=== PATIENT | female | born 1970 | race Caucasian/White ===

== ENCOUNTER 2022-06-10 01:01 | Day surgery (SDC) | payer BC, OTHER, SELFPAY ==
[2022-05-28 13:24] VITALS: BMI 39.4
[2022-06-10 08:14] VITALS: BP 144/86; PULSE 99; RESP 16; TEMP 36.2; O2SAT 100; BMI 38.7
[2022-06-10] MEDS: LACTATED RINGERS 1,000 ML 150 ML IV CONT (08:31)
--- NOTE | 2022-06-10 09:10 | WPDANESEPPF ---
Anes - Initial Pre Proc Eval Procedure: Operation Date: 06/10/22 09:45 Proposed Procedures p Screening Colonoscopy - Fei Bowles MD Date/Time: 06/10/22 09:10 Surgeon: Fei Bowles MD Pre Op Diagnosis: neoplasm screening Patient Data Age: 51 Gender: F Height: 1.57 m Weight: 95.9 kg Last Vital Signs Temp 97.1 F L 06/10/22 08:14 Pulse 99 06/10/22 08:14 Resp 16 06/10/22 08:14 BP 144/86 H 06/10/22 08:14 Pulse Ox 100 06/10/22 08:14 O2 Del Method Room Air 06/10/22 08:14 Allergies Allergy/AdvReac Type Severity Reaction Status Date / Time No Known Allergies Allergy Verified 06/10/22 08:13 Home Medications Medication Instructions Recorded Confirmed Type cyanocobalamin (vitamin B-12) 1,000 mcg PO DAILY 10/09/19 06/10/22 History 1,000 mcg tablet metoprolol succinate 50 mg 50 mg PO DAILY #90 tabs 12/30/21 06/10/22 Rx tablet,extended release 24 hr valacyclovir 1 gram tablet 1,000 mg PO DAILY #90 tabs 01/01/22 06/10/22 Rx (Valtrex) irbesartan 300 mg tablet (Avapro) 300 mg PO DAILY #90 tabs 05/18/22 06/10/22 Rx lansoprazole 30 mg capsule,delayed 30 mg PO DAILY #90 caps 05/18/22 06/10/22 Rx release (Prevacid) norgestimate-ethinyl estradiol 1 tablet PO DAILY #84 tabs 05/18/22 06/10/22 Rx 0.18 mg/0.215mg/0.25mg-35 mcg(28)tablet (Tri-Sprintec (28)) semaglutide 0.25 mg or 0.5 mg (2 0.25 mg (0.2 mL) subcut WEEKLY 05/25/22 06/10/22 Rx mg/1.5 mL) subcutaneous pen #1.5 mL injector (Ozempic) Patient hx anesthesia problems: none Family hx anesthesia problems: none Results Review: All pre-operative results and documents have been reviewed as part of the pre-operative evaluation. [facility] Past Medical History Medical History (Updated 05/25/22 @ 07:41 by Dwight Rao MD) Abdominal obesity and metabolic syndrome Adult BMI 35.0-35.9 kg/sq m Blood typing encounter 01/12/2022 with blood type O positive Chronic neck pain Contraception management Encounter for wellness examination in adult Essential (primary) hypertension Family history of colon cancer in father Fever blister GERD (gastroesophageal reflux disease) Hypersomnia Iron deficiency (10/05/19) iron low at 36 with 80% saturation and hemoglobin 13.2 on 10/05/2019. iron normal at 54 with% saturation low at 14% with ferritin low at 13 and hemoglobin 12.9 on 01/12/2022. Mixed hyperlipidemia (10/05/19) Total cholesterol 264, HDL 56, triglycerides 222, LDL 170 on 10/05/2019. Total cholesterol 236 with triglycerides elevated at 437 with HDL 45 and LDL not calculated on 01/12/2022. Obesity (BMI 30-39.9) Vitamin B12 deficiency anemia (10/05/19) Vitamin B12 low at 268 with goal greater than 400 on 10/05/2019 with .2 . Level normal at 1617 on 01/12/2022. Weight gain Family History Family History (Updated 12/30/21 @ 15:55 by Geni Salvador MA) Father Carcinoma of colon Hypertension Mother Hypertension Other Diabetes mellitus Family history of heart disease in male family member before age 55 Social History Social History Smoking status: Never smoker Alcohol intake: never Substance use: never Substance use type: does not use Living arrangements: with family Spiritual care concerns: No Anes - Eval Final PreProcedure Day of Procedure 06/10/22 09:10 Patient weight: obese Heart: regular rate and rhythm Lungs: clear to auscultation Airway: Mallampati scale class II Neurological: alert and oriented Last oral intake: >/= 8 hours ASA classification: III Emergent: no Anesthetic plan: proceed Anesthesia type and monitoring: general GIVS and standard monitoring Results Review: All pre-operative results and documents have been reviewed as part of the pre-operative evaluation. Informed Consent: The patient's anesthetic plan and its attendant risks and benefits were discussed
--- NOTE | 2022-06-10 09:17 | PM.HPGS ---
History of Present Illness History of Present Illness Consent: Risks, benefits, and alternatives have been discussed and questions answered. Patient agrees to proceed with procedure. Chief complaint: neoplasm screening Narrative: Kayla De Anda is a 51 year old female here for first colonoscopy, father had colon cancer Review of Systems Constitutional: Constitutional: Denies headache(s) and Denies weakness Eyes: Eyes: Denies blurry vision ENT: Reports Normal hearing present, Denies headache(s) and Denies neck pain Cardiovascular: Cardiovascular: Denies chest pain and Denies dyspnea Respiratory: Respiratory: Denies dyspnea Gastrointestinal: Gastrointestinal: Reports no additional gastrointestinal complaints Genitourinary: Genitourinary: Denies dysuria Musculoskeletal: Musculoskeletal: Denies neck pain Integumentary/Breasts: Skin/Breast: Denies dry skin Neurologic: Reports Normal hearing present, Denies headache(s) and Denies weakness Psychiatric: Psychiatric: Denies anxiety Endocrine: Endocrine: Denies change in body appearance Hematologic/Lymphatic: Hematologic/Lymphatic: Denies easy bleeding Allergic/Immunologic: Allergic/Immunologic: Denies urticaria PMFSH Past Medical History Medical History (Updated 05/25/22 @ 07:41 by Dwight Rao MD) Abdominal obesity and metabolic syndrome Adult BMI 35.0-35.9 kg/sq m Blood typing encounter 01/12/2022 with blood type O positive Chronic neck pain Contraception management Encounter for wellness examination in adult Essential (primary) hypertension Family history of colon cancer in father Fever blister GERD (gastroesophageal reflux disease) Hypersomnia Iron deficiency (10/05/19) iron low at 36 with 80% saturation and hemoglobin 13.2 on 10/05/2019. iron normal at 54 with% saturation low at 14% with ferritin low at 13 and hemoglobin 12.9 on 01/12/2022. Mixed hyperlipidemia (10/05/19) Total cholesterol 264, HDL 56, triglycerides 222, LDL 170 on 10/05/2019. Total cholesterol 236 with triglycerides elevated at 437 with HDL 45 and LDL not calculated on 01/12/2022. Obesity (BMI 30-39.9) Vitamin B12 deficiency anemia (10/05/19) Vitamin B12 low at 268 with goal greater than 400 on 10/05/2019 with [id number] . Level normal at 1617 on 01/12/2022. Weight gain Family History Family History (Updated 12/30/21 @ 15:55 by Geni Salvador MA) Father Carcinoma of colon Hypertension Mother Hypertension Other Diabetes mellitus Family history of heart disease in male family member before age 55 Social History Social History Smoking status: Never smoker Alcohol intake: never Substance use: never Substance use type: does not use Living arrangements: with family Spiritual care concerns: No Meds Home Medications and Allergies Home Medications Medication Instructions Recorded Confirmed Type cyanocobalamin (vitamin B-12) 1,000 mcg PO DAILY 10/09/19 06/10/22 History 1,000 mcg tablet metoprolol succinate 50 mg 50 mg PO DAILY #90 tabs 12/30/21 06/10/22 Rx tablet,extended release 24 hr valacyclovir 1 gram tablet 1,000 mg PO DAILY #90 tabs 01/01/22 06/10/22 Rx (Valtrex) irbesartan 300 mg tablet (Avapro) 300 mg PO DAILY #90 tabs 05/18/22 06/10/22 Rx lansoprazole 30 mg capsule,delayed 30 mg PO DAILY #90 caps 05/18/22 06/10/22 Rx release (Prevacid) norgestimate-ethinyl estradiol 1 tablet PO DAILY #84 tabs 05/18/22 06/10/22 Rx 0.18 mg/0.215mg/0.25mg-35 mcg(28)tablet (Tri-Sprintec (28)) semaglutide 0.25 mg or 0.5 mg (2 0.25 mg (0.2 mL) subcut WEEKLY 05/25/22 06/10/22 Rx mg/1.5 mL) subcutaneous pen #1.5 mL injector (Ozempic) Allergies Allergy/AdvReac Type Severity Reaction Status Date / Time No Known Allergies Allergy Verified 06/10/22 08:13 Vital Signs Vital Signs - 24 hr 06/10/22 08:14 Temperature 97.1 F L Pulse Rate 99 Respirat
[2022-06-10 09:42] VITALS: BP 121/70; PULSE 82; RESP 19; O2SAT 100
[2022-06-10 09:52] VITALS: BP 124/74; PULSE 76; RESP 20; O2SAT 100
[2022-06-10 10:02] VITALS: BP 129/81; PULSE 71; RESP 17; O2SAT 100
== END 2022-06-10 10:11 | disposition home or self-care (01) ==
PROVIDERS: PCP Family Medicine; Visit Provider Internal Medicine Gastroenterology
PROC: 0DJD8ZZ Inspection of Lower Intestinal Tract, Via Natural or Artificial Opening Endoscopic (ICD-10-PCS; CPT 45378; principal; 2022-06-10 09:45)
DX: Z12.11 Encounter for screening for malignant neoplasm of colon (principal); K64.8 Other hemorrhoids; Z80.0 Family history of malignant neoplasm of digestive organs; I10 Essential (primary) hypertension; K21.9 Gastro-esophageal reflux disease without esophagitis; D51.3 Other dietary vitamin B12 deficiency anemia; E66.9 Obesity, unspecified; Z68.38 Body mass index [BMI] 38.0-38.9, adult
CPT/HCPCS: 45378; J2704; J7120

== ENCOUNTER 2025-02-11 12:53 | Observation (INO) | payer BC, OTHER, SELFPAY ==
--- OUTSIDE RECORDS SUMMARY | 2010-03-18 19:00 | XMS_ITS | Continuity of Care Document ---
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 [address] [facility], [facility] [address], [place], [place], [id number] , [place]. tel:[phone] Referring Provider: Ryland Trejo, [address], [place], [address]. tel:[phone] g Provider: Florencia Harvey, [address] [facility], [place], [address]. tel:[phone] Family History Family Member Type Diagnosis Age At Onset No Information Payers Payer name Insurance type Covered constitution party ID Authoriza tion(s) No Information Social History Type Description Quantity Date Captured Comments Sex Female Smoking Status No Information Chief Complaint And Reason For Visit No Information Reason For Referral Reason For Referral No Information History Of Present Illness Encounter Date Complaint History Of Prese nt Illness No Information Functional Status Date Functional Assessmen t No Information Instructions Date Instruction Additional Infor mation No Information Assessments Type Assessment Date No Information Patient Care Teams Name Effective Dates (start - stop) Status Members No Information
[2025-02-11] VITALS (12 sets, daily range): BP systolic 104–124; BP diastolic 62–75; PULSE 74–88; RESP 12–26; TEMP 36.4–37; O2SAT 98–100; BMI 33.7
--- NOTE | ~2025-02-11 | XR_ITS ---
EXAMINATION: XR chest 1V portable DATE: 02/11/2025 13:53 INDICATION: Stroke TECHNIQUE: frontal view of the chest was obtained. COMPARISON: None FINDINGS: Mild linear discoid atelectasis at the left costophrenic angle. No other airspace opacities, pulmonary edema, pleural effusion or pneumothorax. The cardiomediastinal silhouette is normal. Interval plate-screw fixation for lower cervical anterior spinal fusion. Mild thoracic dextrocurvature. IMPRESSION: 1. Mild discoid atelectasis/scarring at the left costophrenic angle. No other acute cardiopulmonary disease. Reviewed, dictated and finalized at location A. IMPRESSION: 1. Mild discoid atelectasis/scarring at the left costophrenic angle. No other a cute cardiopulmonary disease.
--- NOTE | ~2025-02-11 | CT_ITS ---
EXAMINATION: CTA BRAIN/CAROTID DATE: 02/11/2025 13:30 INDICATION: Stroke with facial numbness and right arm weakness TECHNIQUE: Computed tomographic angiography (CTA) of the head and neck was performed with 100 mL Omnipaque-350 intravenous contrast. Multiplanar reconstructions and maximum intensity projection 3D-reconstructions of the carotid arteries and of the intracranial arteries were created by the technologist on a separate workstation. Precontrast CT of the head was also obtained. Automated exposure control and iterative reconstruction technique were employed.The dose-length product was 1669.34 mGy-cm. COMPARISON: None. FINDINGS: Head: No acute intracranial hemorrhage, acute infarction or abnormal extra axial fluid collection. Ventricles are normal and symmetric. No mass/mass effect. No abnormally enhancing lesions on the post contrast imaging. The orbits, paranasal sinuses and mastoid air cells are normal. Intracranial arteries Left vertebral artery is dominant. There is no hemodynamically significant stenosis in the vertebral, basilar and internal carotid arteries. Both A1 and P1 segments are patent. There are no aneurysms identified. Cerebral arterial arborization appears symmetric. Carotid arteries: The aortic arch and the great vessels arising from the arch are normal in caliber with no dissection or hemodynamically significant stenosis. There is no evident atherosclerotic plaque with 0% stenosis of the right and left carotid bulbs relative to normal distal artery lumen diameter (NASCET criteria). Left vertebral artery is mildly dominant. Cervical soft tissues are unremarkable. Visualized upper lungs are clear. Instrumented C5-C7 anterior spinal fusion with anterior plate and screw fixation. IMPRESSION: 1. No evident atherosclerotic plaque with 0% stenosis of the right and left carotid bulbs relative to normal distal artery lumen diameter (NASCET criteria). 2. Normal brain. No acute intracranial process or abnormally enhancing brain lesions. 3. Unremarkable cerebral CT angiogram with no hematoma significant stenosis, thrombosis or aneurysm. Reviewed, dictated and finalized at location A. IMPRESSION: 1. No evident atherosclerotic plaque with 0% stenosis of the right and left car otid bulbs relative to normal distal artery lumen diameter (NASCET criteria). 2. Normal brain. No acute intracranial process or abnormally enhancing brain le sions. 3. Unremarkable cerebral CT angiogram with no hematoma significant stenosis, th rombosis or aneurysm.
--- NOTE | 2025-02-11 13:04 | ECG_ITS ---
Test Date: 2025-02-11 13:52:22 Measurements Intervals [place] Rate: 76 P: 24 WV: 139 QRS: -4 QRSD: 81 T: 18 QT: 389 QTc: 439 Interpretive Statements SINUS RHYTHM MINIMAL Q WAVES- HIGH LATERAL LEADS POSSIBLE ANTERIOR MYOCARDIAL INFARCTION , PROBABLY OLD BORDERLINE T WAVE ABNORMALITY- ANT/INF LEADS BASELINE ARTIFACT- I, III, AVR, AVL, AVF, V2, V5-V6 ABNORMAL ECG No previous ECG available for comparison Electronically Signed On 02-11-2025 16:06:53 CDT by Aiden Malcolm D.O.
--- NOTE | 2025-02-11 13:16 | ED.NEUROSD ---
HPI - Neuro Symptoms/Deficit General Chief Complaint: Suspected CVA Stated Complaint: stroke symptoms, facial numbness, right arm weak Time Seen by Provider: 02/11/25 13:05 History of Present Illness HPI Narrative: [age] female presents to the emergency department for evaluation for neurologic symptoms. Patient began having a ?strange sensation ?in her right arm at approximately 9:00 a.m.. Patient states she was able to text without arm. Patient denies any flaccid paralysis. Patient denies the arm being completely numb. Patient states she also did develop some right-sided facial numbness. Denies seeing any facial droop. Patient denies any changes in speech. Once the symptoms started patient did actually go to grab some food. Upon arrival emergency department patient does complain of some decreased sensation of the right side of the face but denies any current symptoms with the right hand. Related Data Home Medications ?Medication ?Instructions ?Recorded ?Confirmed ?Last Taken ?Type ferrous sulfate 137 mg (45 mg 137 mg PO . q.a.m. 07/26/23 02/11/25 02/11/25 History iron) tablet,extended release semaglutide 0.25 mg or 0.5 mg (2 0.25 mg subcut WEEKLY 01/02/25 02/11/25 02/11/25 History mg/3 mL) subcutaneous pen injector (Ozempic) amoxicillin 250 mg capsule 750 mg PO Q12H 02/08/25 02/11/25 02/11/25 History Allergies Allergy/AdvReac Type Severity Reaction Status Date / Time No Known Allergies Allergy Verified 02/11/25 13:04 Review of Systems Review of Systems: All systems reviewed & are unremarkable except as noted in HPI and below [facility] Past Medical History Medical History Pharyngitis Sebaceous cyst of breast Cellulitis BMI 34.0-34.9,adult Eosinophilia (12/26/24) new onset elevated eosinophils With count elevated at 1428 on 12/26/2024.IgE normal at 6. repeat CBC on 01/29/2025 with WBC 9.1, hemoglobin 13.4, eosinophil count slightly elevated at 537. Coronary artery calcification seen on CAT scan (09/21/24) coronary artery calcium CT scan 09/21/2024 with total score of 457 with 68.1 of the LAD, 7.6 circumflex, 381 RCA. High probability significant coronary artery disease. BMI 37.0-37.9, adult Acute thoracic back pain (~08/2024) Vitamin D deficiency, unspecified (05/04/24) level low at 26.2 with goal greater than 30 on 05/04/2024. BMI 38.0-38.9,adult Elevated liver enzymes (03/25/24) AST 38, ALT elevated at 53 with alkaline phosphatase elevated at 131 on 03/25/2024.AST 34, ALT 48 on 05/04/2024. AST 32, ALT 38 on 08/28/2024. AST 23, ALT 25 on 12/26/2024. Elevated hemoglobin A1c (03/25/24) fasting glucose 99 with hemoglobin A1c 6.0 on 03/25/2024. Fasting glucose 97 with hemoglobin A1c 5.8 on 05/04/2024. Fasting glucose 86 with hemoglobin A1c 5.9 on 08/28/2024. Fasting glucose 86 with hemoglobin A1c 5.7 and GFR 101 on 12/26/2024. Renal stones (~08/04/23) nonobstructing renal stones noted on CT of the abdomen and pelvis on 08/04/2023 Uterine fibroid (~08/04/23) uterine fibroids noted on CT of the abdomen and pelvis on 08/04/2023. Cholelithiasis (~08/04/23) gallstones noted on CT of the abdomen 08/04/2023. Lumbar spondylosis (~08/04/23) CT of the abdomen and pelvis on 08/04/2023 reveals diffuse degenerative disc disease of the lumbar spine with facet arthropathy severe at L3-L4 through L5-S1 with moderate osteoarthritis of the hips. Perimenopausal Early satiety Abdominal bloating Abdominal pain in female amylase 30, lipase 19, CA 125 normal at 17, AST 20, ALT 16 on 07/16/2023. Morbid obesity with BMI of 40.0-44.9, adult Breast cancer screening by mammogram Normal mammogram 08/04/2023. normal mammogram 01/31/2025. Lightheadedness (~11/2022) Low iron on 12/03/2022. Abdominal obesity and metabolic syndrome Chronic neck pain Hypersomnia Obesity (BMI 30-39.9) Normal glucose at 81 with hemoglobin A1c 5.4 with normal TSH at 1.28 on 07/16/2023. Blood typing encounter 01/12/2022 with blood type O positive Adult BMI 35.0-35.9 kg/sq m Weight gain Contraception management GERD (gastroesophageal reflux disease) Vitamin B12 deficiency anemia (10/05/19) Vitamin B12 low at 268 with goal greater than 400 on 10/05/2019 with [id number] . Level normal at 1617 on 01/12/2022. Level greater than 2000 with hemoglobin 12.6 on 12/03/2022. level normal at 782 with hemoglobin 13.4 on 07/16/2023. Level normal at 584 on 08/28/2024. Normal at 412 with hemoglobin 13.3 on 12/26/2024. Iron deficiency (10/05/19) iron low at 36 with 80% saturation and hemoglobin 13.2 on 10/05/2019. iron normal at 54 with% saturation low at 14% with ferritin low at 13 and hemoglobin 12.9 on 01/12/2022. Iron low at 34 with 9% saturation and ferritin 8 with hemoglobin 12.6 on 12/03/2022. Iron low at 43 with 11% saturation and ferritin low at 11 with hemoglobin 13.4 on 07/16/2023. Iron 42 with 11% saturation and ferritin 17 on 10/07/2023. Iron 54 with 15% saturation and ferritin 61 with hemoglobin 15.5 on 08/28/2024. Iron 57 with 19% saturation and ferritin 86 with hemoglobin 13.3 on 12/26/2024. Family history of colon cancer in father (06/10/22) For screening colonoscopy was normal on 06/10/2022 with recheck in 5 years. Encounter for wellness examination in adult Mixed hyperlipidemia (10/05/19) Total cholesterol 264, HDL 56, triglycerides 222, LDL 170 on 10/05/2019. Total cholesterol 236 with triglycerides elevated at 437 with HDL 45 and LDL not calculated on 01/12/2022. Total cholesterol 215 with triglycerides 477, HDL 38 and LDL not calculated with ratio of 5.8 on 12/03/2022. Cholesterol 227, triglycerides 469, HDL 36, LDL not calculated, ratio 6.3 on 10/07/2023. cholesterol 279, triglycerides 411, HDL 33, LDL 155 with ratio 8.5 on 03/25/2024. Total cholesterol 174, triglycerides 322, HDL 39, LDL 82 with ratio of 4.5 on 05/04/2024. cholesterol 216, triglycerides 332, HDL 43, LDL 126 with ratio of 5.0 on 08/28/2024. Cholesterol 153, triglycerides 278, HDL 38, LDL 78 with ratio 4.0 on 12/26/2024. cholesterol 317, triglycerides 458, HDL 37, LDL not calculated, ratio of 8.6 without medication on 01/29/2025. Fever blister Essential (primary) hypertension BUN 15, creatinine 0.84 with GFR 84 on 12/03/2022. Family History Family History Father Carcinoma of colon Hypertension Mother Hypertension Other Diabetes mellitus Family history of heart disease in male family member before age 55 Social History Social History Smoking status: Never smoker Alcohol intake: never Substance use: never Substance use type: does not use Lack of Transportation: No Lack of Food: Never True Current Housing: Decline to Answer Concerned About Future Housing: Decline to Answer Difficulty Paying Gas/Electric Bills: Decline to Answer Difficulty Paying for Meds: Decline to Answer Currently Unemployed: Decline to Answer Education: Decline to Answer Difficulty w/ Childcare or Family Care: Decline to Answer Living arrangements: with family Spiritual care concerns: No Exam Narrative: APPEARANCE: Well appearing, no pain, no distress, well-nourished. HEAD: normocephalic, atraumatic. EYES: PERRLA/EOMI, conjunctivae clear. NOSE: Normal no drainage EARS:TMS clear with good light reflex. THROAT: Pharynx clear, no exudate. NECK: Supple. No adenopathy, no masses. RESPIRATORY: Airway patent, respirations nonlabored. Clear to auscultation bilaterally, no rales, rhonchi, wheezing. CARDIOVASCULAR: Regular rate and rhythm without murmurs rubs or gallops. ABDOMINAL: Soft, nontender, nondistended, normal bowel sounds MUSCULOSKELETAL: Moves all extremities. Strength/ROM intact, No edema, No calf tenderness. NEURO: Alert. Cranial nerves II through XII intact. Grossly intact. Mild decreased sensation over the right face SKIN: Warm, dry. Normal Color Course Vital Signs Vital signs: Vital Signs Pulse Rate 87 02/11/25 12:54 Respiratory Rate 16 02/11/25 12:54 Blood Pressure 124/75 02/11/25 12:54 Pulse Oximetry 100 02/11/25 12:54 Temperature 97.7 F 02/11/25 16:40 Pulse Rate 87 02/11/25 17:00 Respiratory Rate 18 02/11/25 16:40 Blood Pressure 109/66 02/11/25 16:40 Pulse Oximetry 99 02/11/25 16:40 Oxygen Delivery Room Air 02/11/25 16:57 MDM - Neuro Symptoms/Deficit MDM Narrative Medical decision making narrative: 54-year-old female presents emergency department for evaluation for paresthesias to right arm and right face. Patient is afebrile with no leukocytosis hemoglobin was 13.3. INR is 0.9. Patient has no acute abnormalities on her CMP and troponin was negative. Chest x-ray shows no acute cardiopulmonary abnormality. Head CTA was negative for acute findings. Patient was treated with aspirin and Plavix. We do not have Neurology on-call today but neurology does return tomorrow. Case was discussed with the hospitalist patient was accepted for admission. MRI was ordered for tomorrow. Patient was updated the results of the workup and recommended plan for admission. Patient was willing to stay. All questions concerns were addressed patient was well-appearing at time of admission. Differential Diagnosis Differential diagnosis: Likely subarachnoid hemorrhage, cerebrovascular accident, transient cerebral ischemia and other Lab Data Attestation: I reviewed the patient's lab results. 02/11/25 13:12 02/11/25 13:23 Labs: Lab Results 02/11/25 02/11/25 02/11/25 Range/Units 13:09 13:12 13:23 WBC 9.0 (4.5-10.0) K/mm3 RBC 4.28 (4.2-5.4) M/mm3 Hgb 13.3 (12.0-15.0) g/dL Hct 40.3 (37.0-47.0) % MCV 94.2 (80-100) fl MCH 31.1 (26-34) pg MCHC 33.0 (32-36) g/dl RDW 12.9 (11.5-14.5) % Plt Count 323 (150-375) k/mm3 MPV 9.5 (7.4-10.4) fl Immature Gran % (Auto) 0.2 (0-0.5) % Neut % (Auto) 44.4 L (45.5-73.1) % Lymph % (Auto) 43.3 (18.3-44.2) % [place] % (Auto) 5.9 (2.6-8.5) % Eos % (Auto) 5.2 H (0-4.4) % Baso % (Auto) 1.0 (0.2-1.2) % Lymph # (Auto) 3.89 H (0.9-3.2) K/mm3 [place] # (Auto) 0.5 (0.1-0.6) K/mm3 Eos # (Auto) 0.5 H (0-0.3) K/mm3 Baso # (Auto) 0.1 (0.0-0.1) K/mm3 Abs Immat Gran (auto) 0.02 (0.00-0.031) K/mm3 Absolute Neuts (auto) 4.0 (1.3-6.7) K/mm3 Absolute Nucleated RBC 0.000 (0.0-0.012) K/mm3 Nucleated RBC % 0.0 (0.0-0.2) % PT 12.4 (11.1-14.7) Seconds INR 0.9 APTT 26.4 (22.3-36.8) Seconds Sodium 139 (137-145) mmol/L Potassium 3.3 L (3.4-5.0) mmol/L Chloride 100 (98-107) mmol/L Carbon Dioxide 28 (22-30) mmol/L Anion Gap 11 (4-12) mmol/L BUN 15 (7-17) mg/dL Creatinine 0.76 1.00 (0.7-1.0) mg/dL Estim Creat Clear Calc 74 57 ml/min Estimated GFR > 60 58 L (59 - ) Glucose 104 (65-110) mg/dL POC Capillary Glucose 96 (65-105) mg/dl Calcium 9.5 (8.4-10.2) mg/dL Total Bilirubin 0.6 (0.2-1.3) mg/dL AST 35 (14-36) U/L ALT 33 (6-35) U/L Alkaline Phosphatase 96 (38-126) U/L Troponin I < 0.012 (0.000-0.034) ng/mL Total Protein 6.9 (6.3-8.2) g/dL Albumin 4.0 (3.5-5.1) g/dL Imaging Data Radiologist's impression: Impressions Head/Neck CTA 02/11/25 13:56 IMPRESSION: 1. No evident atherosclerotic plaque with 0% stenosis of the right and left carotid bulbs relative to normal distal artery lumen diameter (NASCET criteria). 2. Normal brain. No acute intracranial process or abnormally enhancing brain lesions. 3. Unremarkable cerebral CT angiogram with no hematoma significant stenosis, thrombosis or aneurysm. Chest X-Ray 02/11/25 14:05 IMPRESSION: 1. Mild discoid atelectasis/scarring at the left costophrenic angle. No other acute cardiopulmonary disease. Discharge Plan Discharge Clinical Impression: Brain TIA, Paresthesia of right arm, Facial paresthesia Patient Disposition: Still a Patient Condition: Serious Quality Stroke Scale Stroke Scale 1: Stroke scale date:: 02/11/25 Stroke scale time:: 13:10 1a Level of consciousness: alert-0 1b Level of consciousness questions: answers both correctly-0 1c Level of consciousness commands: obeys both correctly-0 2 Best gaze: normal-0 3 Visual: no visual loss-0 4 Facial palsy: normal-0 5a Motor: left arm: no drift-0 5b Motor: right arm: no drift-0 6a Motor: left leg: no drift-0 6b Motor: right leg: no drift-0 7 Limb ataxia: absent-0 8 Sensory: pinprick less sharp-1 9 Best language: no aphasia-0 10 Dysarthria: normal-0 11 Extinction and inattention: no abnormality-0 Level:: 1
[2025-02-11 13:21] LABS: Hematocrit 40.3 % (37.0-47.0); Hemoglobin 13.3 g/dL (12.0-15.0); Immature Granulocyte Percent A 0.2 % (0-0.5); Lymphocytes Absolute Auto 3.89 K/mm3 (0.9-3.2); Mean Corpuscular HGB Conc 33.0 g/dl (32-36); Mean Corpuscular Hemoglobin 31.1 pg (26-34); Mean Corpuscular Volume 94.2 fl (80-100); Nucleated Red Blood Cells Absolute Auto 0.000 K/mm3 (0.0-0.012); Nucleated Red Blood Cells Perc 0.0 % (0.0-0.2); Platelet Count Result 323 k/mm3 (150-375); Red Blood Count 4.28 M/mm3 (4.2-5.4); White Blood Count 9.0 K/mm3 (4.5-10.0)
[2025-02-11 13:27] LABS: Estimated CRCL calculation 57 ml/min; Estimated Glomerular Filt Rate 58
[2025-02-11 13:31] LABS: INR 0.9; Prothrombin Time 12.4 Seconds (11.1-14.7)
[2025-02-11 13:36] LABS: Alanine Aminotransferase 33 U/L (6-35); Albumin Level 4.0 g/dL (3.5-5.1); Alkaline Phosphatase 96 U/L (38-126); Anion Gap 11 mmol/L (4-12); Aspartate Amino Transferase 35 U/L (14-36); Bilirubin,Total 0.6 mg/dL (0.2-1.3); Blood Urea Nitrogen 15 mg/dL (7-17); Calcium 9.5 mg/dL (8.4-10.2); Carbon Dioxide 28 mmol/L (22-30); Chloride 100 mmol/L (98-107); Estimated CRCL calculation 74 ml/min; Estimated Glomerular Filt Rate > 60; Glucose 104 mg/dL (65-110); Potassium 3.3 mmol/L (3.4-5.0); Sodium 139 mmol/L (137-145); Total Protein 6.9 g/dL (6.3-8.2)
[2025-02-11 13:40] LABS: Partial Thromboplastin Time 26.4 Seconds (22.3-36.8)
[2025-02-11 13:44] LABS: Troponin I < 0.012 ng/mL (0.000-0.034)
--- OUTSIDE RECORDS SUMMARY | 2025-02-11 13:44 | XMS_ITS | Clinical Summary ---
Author Organization [facility] Address [address] [place] [address] Care Team Providers Care Auto Service Writer Name Role Phone Unavailable Primary Care Provider Unavailabl e Encounters Date Type Department Care Team Description 01/31/2025 7:22 AM CDT - 01/31/2025 11:59 PM CDT Hospital Encounter [facility] [address] [facility] [place] [address] Self Referral Provider, Marii, Dwight Quintana MD Discharge Disposition: Home or Self Care from Last 3 Months Social History Tobacco Use Types Packs/Day Years Used Date Smoking Tobacco: Never Assessed Comments Unknown Sex and Gender Information Value Date Recorded Sex Assigned at Not on file 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 Gender Identity Not on file Sexual Orientation Not on file Plan of Treatment Health Maintenance Due Date Last Done Comments Pre-Diabetes and Diabetes Screening 1970 DTAP/TDAP/TD VACCINES (1 - Tdap) 1989 HEPATITIS B VACCINES (1 of 3 - 19+ 3-dose series) 1989 HPV/Cotest (21-29) 1991 CERVICAL CANCER SCREENING 2000 HPV/Cotest (30-65) 2000 PAP SMEAR 2000 COLORECTAL SCREENING 2015 Colorectal Cancer Screening 2015 FIT-DNA Q 3 years 2015 FIT/FOBT Q 1 year 2015 Flex Sig/CT Colonography Q 5 years 2015 ZOSTER VACCINE (2 of 3) 04/27/2021 03/02/2021 COVID-19 Vaccine (2 - season) 2024 INFLUENZA VACCINE (#1) 2025 03/02/2021, 2018 BREAST CANCER SCREENING 01/31/2026 01/31/2025, 08/04 Procedures Procedure Name Priority Date/Time Associated Diagnosis Comments MAMMO 3D SLOAN SCREEN BILAT W OR WO CAD Routine 01/31/2025 7:49 AM CDT Visit for screening mammogram from Last 3 Months Results * MAMMO 3D SLOAN SCREEN BILAT W OR WO CAD (01/31/2025 7:49 AM CDT) Anatomical Region Laterality Modality Breast Bilateral Mammography 01/31/2025 7:50 AM CDT Impressions 01/31/2025 4:44 PM CDT IMPRESSION: NO RADIOGRAPHIC EVIDENCE OF MALIGNANCY. BI-RADS CATEGORY 1-Negative. DICTATION LOCATION: Location 4 Narrative 01/31/2025 4:44 PM CDT MAMMOGRAM: Computer Assisted Detection (CAD) used during interpretation. INDICATION: Screening. Standard views of both breasts are obtained. 3D tomosynthesis was also utilized. Compared to 08/04/23. There has been no change. There is no abnormal mass or grouped microcalcifications present to suggest malignant disease. Breast Density: Scattered areas of fibroglandular density. Jos Molina MD MAMMO ORDERABLES Ana Cristina garcia Result from Last 3 Months Insurance BCBS BLUE ACCESS/TRUE BLUE PPO [facility] [address] BLUE ACCESS/TRUE BLUE PPO
--- OUTSIDE RECORDS SUMMARY | 2025-02-11 13:44 | XMS_ITS | Clinical Summary ---
Author Organization [facility] Address [address] [place] [id number] Care Team Providers Care Field Examiner Name Role Phone Dwight Rao MD Primary Care Provider [phone] Social History Tobacco Use Types Packs/Day Years Used Date Smoking Tobacco: Never Assessed Comments Unknown Sex and Gender Information Value Date Recorded Sex Assigned at Female 09/21/2024 6:39 AM CDT Legal Sex Female 8:25 AM CDT Gender Identity Not on file Sexual Orientation Not on file Plan of Treatment Health Maintenance Due Date Last Done Comments Cervical Cancer Screening Pa p Smear (Age 30 to 64) Every 3 Years 1970 Colorectal Cancer Screening Colonoscopy (10 Years) 1970 Annual Physical 1973 Hepatitis C 1988 DTaP, Tdap and Td Vaccines ( 1 - Tdap) 1989 Hepatitis B Vaccines (1 of 3 - 19+ 3-dose series) 1989 Cervical Cancer Screening Pa p with HPV Testing (Age 30 to 64) Every 5 Years 2000 Cervical Cancer Screening with HPV 2000 Pneumococcal Vaccine: 50+ Ye ars (1 of 1 - PCV) 2020 Zoster Vaccines (1 of 2) 2020 COVID-19 Vaccine ( - 2023-2 5 season) 2024 Mammogram Screening 08/04/2025 08/04/2023 Meningococcal B Vaccine Aged Out No l onger eligible based on patient's age to complete this topic Meningococcal Vaccine Aged Out No alfonso inderjit eligible based on patient's age to complete this topic RSV Immunizations Under 20 Months Aged Out No longer eligible based on patient's age to complete this topic Insurance [facility] Care Teams Field Examiner Relationship Specialty Start Date End Date Dwight aRo MD [address] [place] [address] [address] [place] [address] PCP - General FAMILY PRACTICE 08/31/24
[2025-02-11] MEDS: ASPIRIN 81 MG CHEWABLE TABLET 324 MG PO (15:34)
[2025-02-11] MEDS: CLOPIDOGREL BISULFATE 300 MG TABLET PO (15:34)
--- NOTE | 2025-02-11 16:06 | ADMGEN ---
This patient, Kayla De Anda, was admitted to 2 Medical Room 242-01. Patient/family oriented to hospital policies and general routines including ID bracelet, bed and alarms, visiting hours, pain management, procedures, bathroom and other care routines, personal items, smoking policy, room service/diet, and visiting hours. Information on how to activate the Rapid Response Team has been discussed. Patient/Family are encouraged to report perceived risks to care and to ask questions if they do not understand what they are told or what they should do.
--- NOTE | 2025-02-11 16:09 | PM.IMHP ---
H&P: HPI History of Present Illness Date/Time: 02/11/25 16:09 Chief Complaint: Facial numbness, right arm weakness Narrative: 54-year-old female with PMHx: HTN, GERD, iron deficiency, presented to the emergency room with complaints of numbness and tingling in the right side of her face and wrist that began earlier this morning while looking at her phone. The patient described a sensation that was similar to the numbness experience after a dental procedure. The symptoms did continue throughout the day even after eating in a restaurant and grocery shopping. The patient was concerned about the possibility of a stroke. The patient has a high history of high cholesterol, citing she was recently switched to a different cholesterol medication due to the elevated white blood cell counts. The patient experienced several acid reflux symptoms with the previous cholesterol medications which resolved after discontinuation of medication. The patient mention she takes Valtrex daily for cold sores which has been effective in preventing outbreaks. The patient did not report any chest pain shortness a breath nausea or vision changes at this time. ED workup revealed: NIH Scale level 1, K+ 3.3, GFR 58, creatinine 1.0, CTA normal brain, chest x-ray mild discoid atelectasis/scarring at the left costophrenic angle. No other acute cardiopulmonary disease, EKG sinus rhythm Review of Systems Review of Systems: All systems reviewed & are unremarkable except as noted in HPI and below PMFSH Past Medical History Medical History Pharyngitis Sebaceous cyst of breast Cellulitis BMI 34.0-34.9,adult Eosinophilia (12/26/24) new onset elevated eosinophils With count elevated at 1428 on 12/26/2024.IgE normal at 6. repeat CBC on 01/29/2025 with WBC 9.1, hemoglobin 13.4, eosinophil count slightly elevated at 537. Coronary artery calcification seen on CAT scan (09/21/24) coronary artery calcium CT scan 09/21/2024 with total score of 457 with 68.1 of the LAD, 7.6 circumflex, 381 RCA. High probability significant coronary artery disease. BMI 37.0-37.9, adult Acute thoracic back pain (~08/2024) Vitamin D deficiency, unspecified (05/04/24) level low at 26.2 with goal greater than 30 on 05/04/2024. BMI 38.0-38.9,adult Elevated liver enzymes (03/25/24) AST 38, ALT elevated at 53 with alkaline phosphatase elevated at 131 on 03/25/2024.AST 34, ALT 48 on 05/04/2024. AST 32, ALT 38 on 08/28/2024. AST 23, ALT 25 on 12/26/2024. Elevated hemoglobin A1c (03/25/24) fasting glucose 99 with hemoglobin A1c 6.0 on 03/25/2024. Fasting glucose 97 with hemoglobin A1c 5.8 on 05/04/2024. Fasting glucose 86 with hemoglobin A1c 5.9 on 08/28/2024. Fasting glucose 86 with hemoglobin A1c 5.7 and GFR 101 on 12/26/2024. Renal stones (~08/04/23) nonobstructing renal stones noted on CT of the abdomen and pelvis on 08/04/2023 Uterine fibroid (~08/04/23) uterine fibroids noted on CT of the abdomen and pelvis on 08/04/2023. Cholelithiasis (~08/04/23) gallstones noted on CT of the abdomen 08/04/2023. Lumbar spondylosis (~08/04/23) CT of the abdomen and pelvis on 08/04/2023 reveals diffuse degenerative disc disease of the lumbar spine with facet arthropathy severe at L3-L4 through L5-S1 with moderate osteoarthritis of the hips. Perimenopausal Early satiety Abdominal bloating Abdominal pain in female amylase 30, lipase 19, CA 125 normal at 17, AST 20, ALT 16 on 07/16/2023. Morbid obesity with BMI of 40.0-44.9, adult Breast cancer screening by mammogram Normal mammogram 08/04/2023. normal mammogram 01/31/2025. Lightheadedness (~11/2022) Low iron on 12/03/2022. Abdominal obesity and metabolic syndrome Chronic neck pain Hypersomnia Obesity (BMI 30-39.9) Normal glucose at 81 with hemoglobin A1c 5.4 with normal TSH at 1.28 on 07/16/2023. Blood typing encounter 01/12/2022 with blood type O positive Adult BMI 35.0-35.9 kg/sq m Weight gain Contraception management GERD (gastroesophageal reflux disease) Vitamin B12 deficiency anemia (10/05/19) Vitamin B12 low at 268 with goal greater than 400 on 10/05/2019 with [id number] . Level normal at 1617 on 01/12/2022. Level greater than 2000 with hemoglobin 12.6 on 12/03/2022. level normal at 782 with hemoglobin 13.4 on 07/16/2023. Level normal at 584 on 08/28/2024. Normal at 412 with hemoglobin 13.3 on 12/26/2024. Iron deficiency (10/05/19) iron low at 36 with 80% saturation and hemoglobin 13.2 on 10/05/2019. iron normal at 54 with% saturation low at 14% with ferritin low at 13 and hemoglobin 12.9 on 01/12/2022. Iron low at 34 with 9% saturation and ferritin 8 with hemoglobin 12.6 on 12/03/2022. Iron low at 43 with 11% saturation and ferritin low at 11 with hemoglobin 13.4 on 07/16/2023. Iron 42 with 11% saturation and ferritin 17 on 10/07/2023. Iron 54 with 15% saturation and ferritin 61 with hemoglobin 15.5 on 08/28/2024. Iron 57 with 19% saturation and ferritin 86 with hemoglobin 13.3 on 12/26/2024. Family history of colon cancer in father (06/10/22) For screening colonoscopy was normal on 06/10/2022 with recheck in 5 years. Encounter for wellness examination in adult Mixed hyperlipidemia (10/05/19) Total cholesterol 264, HDL 56, triglycerides 222, LDL 170 on 10/05/2019. Total cholesterol 236 with triglycerides elevated at 437 with HDL 45 and LDL not calculated on 01/12/2022. Total cholesterol 215 with triglycerides 477, HDL 38 and LDL not calculated with ratio of 5.8 on 12/03/2022. Cholesterol 227, triglycerides 469, HDL 36, LDL not calculated, ratio 6.3 on 10/07/2023. cholesterol 279, triglycerides 411, HDL 33, LDL 155 with ratio 8.5 on 03/25/2024. Total cholesterol 174, triglycerides 322, HDL 39, LDL 82 with ratio of 4.5 on 05/04/2024. cholesterol 216, triglycerides 332, HDL 43, LDL 126 with ratio of 5.0 on 08/28/2024. Cholesterol 153, triglycerides 278, HDL 38, LDL 78 with ratio 4.0 on 12/26/2024. cholesterol 317, triglycerides 458, HDL 37, LDL not calculated, ratio of 8.6 without medication on 01/29/2025. Fever blister Essential (primary) hypertension BUN 15, creatinine 0.84 with GFR 84 on 12/03/2022. Family History Family History Father Carcinoma of colon Hypertension Mother Hypertension Other Diabetes mellitus Family history of heart disease in male family member before age 55 Social History Social History Smoking status: Never smoker Alcohol intake: never Substance use: never Substance use type: does not use Lack of Transportation: No Lack of Food: Never True Current Housing: Decline to Answer Concerned About Future Housing: Decline to Answer Difficulty Paying Gas/Electric Bills: Decline to Answer Difficulty Paying for Meds: Decline to Answer Currently Unemployed: Decline to Answer Education: Decline to Answer Difficulty w/ Childcare or Family Care: Decline to Answer Living arrangements: with family Spiritual care concerns: No Meds Home Medications and Allergies Home Medications ?Medication ?Instructions ?Recorded ?Confirmed ?Type ferrous sulfate 137 mg (45 mg 137 mg PO . q.a.m. 07/26/23 02/11/25 History iron) tablet,extended release metformin 500 mg tablet,extended 500 mg PO BID #60 tabs 04/07/24 02/11/25 Rx release 24 hr hydrochlorothiazide 12.5 mg tablet 12.5 mg PO . q.a.m. #30 tabs 05/08/24 02/11/25 Rx lansoprazole 30 mg capsule,delayed 30 mg PO DAILY #90 caps 05/08/24 02/11/25 Rx release (Prevacid) metoprolol succinate 100 mg 100 mg PO DAILY #90 tabs 05/08/24 02/11/25 Rx tablet,extended release 24 hr irbesartan 300 mg tablet (Avapro) 300 mg PO DAILY #90 tabs 05/23/24 02/11/25 Rx valacyclovir 1 gram tablet 1,000 mg PO DAILY #90 tabs 11/27/24 02/11/25 Rx (Valtrex) semaglutide 0.25 mg or 0.5 mg (2 0.25 mg subcut WEEKLY 01/02/25 02/11/25 History mg/3 mL) subcutaneous pen injector (Ozempic) amoxicillin 250 mg capsule 750 mg PO Q12H 02/08/25 02/11/25 History Allergies Allergy/AdvReac Type Severity Reaction Status Date / Time No Known Allergies Allergy Verified 02/11/25 13:04 Vital Signs Vital Signs - 24 hr 02/11/25 12:54 02/11/25 12:56 02/11/25 13:00 Temperature 97.9 F Pulse Rate 87 88 85 Respiratory Rate 16 17 26 H Blood Pressure 124/75 124/75 124/75 Pulse Oximetry 100 100 100 Oxygen Delivery Room Air 02/11/25 13:05 02/11/25 13:31 02/11/25 14:15 Temperature Pulse Rate 88 79 81 Respiratory Rate 12 17 Blood Pressure 118/62 105/67 Pulse Oximetry 100 99 Oxygen Delivery 02/11/25 15:40 Temperature Pulse Rate 85 Respiratory Rate 12 Blood Pressure 104/72 Pulse Oximetry 99 Oxygen Delivery Exam Narrative: APPEARANCE: Well appearing, no pain, no distress, well-nourished. HEAD: normocephalic, atraumatic. EYES: PERRLA/EOMI, conjunctivae clear. NOSE: Normal no drainage EARS:TMS clear with good light reflex. THROAT: Pharynx clear, no exudate. NECK: Supple. No adenopathy, no masses. RESPIRATORY: Airway patent, respirations nonlabored. Clear to auscultation bilaterally, no rales, rhonchi, wheezing. CARDIOVASCULAR: Regular rate and rhythm without murmurs rubs or gallops. ABDOMINAL: Soft, nontender, nondistended, normal bowel sounds MUSCULOSKELETAL: Moves all extremities. Strength/ROM intact, No edema, No calf tenderness. NEURO: Alert. Cranial nerves II through XII intact. Grossly intact SKIN: Warm, dry. Normal Color H&P: Results Labs Labs: Short CBC 02/11/25 Range/Units 13:12 WBC 9.0 (4.5-10.0) K/mm3 Hgb 13.3 (12.0-15.0) g/dL Hct 40.3 (37.0-47.0) % Plt Count 323 (150-375) k/mm3 BMP 02/11/25 02/11/25 13:12 13:23 Sodium 139 Potassium 3.3 L Chloride 100 Carbon Dioxide 28 BUN 15 Creatinine 0.76 1.00 Glucose 104 Calcium 9.5 Cardiac Enzymes 02/11/25 Range/Units 13:12 Troponin I < 0.012 (0.000-0.034) ng/mL Liver Function 02/11/25 Range/Units 13:12 Total Bilirubin 0.6 (0.2-1.3) mg/dL AST 35 (14-36) U/L ALT 33 (6-35) U/L Alkaline Phosphatase 96 (38-126) U/L Albumin 4.0 (3.5-5.1) g/dL ECG ECG completion date: 02/11/25 ECG completion time: 13:52 Interpretation: Ordering Physician: Sridhar Sanchez MD Date of Service: 02/11/25 Procedure(s): CA 12 lead EKG Accession Number(s): [id number] cc: ~ Test Date: 2025-02-11 13:52:22 Measurements Intervals [place] Rate: 76 P: 24 GA: 139 QRS: -4 QRSD: 81 T: 18 QT: 389 QTc: 439 Interpretive Statements SINUS RHYTHM MINIMAL Q WAVES- HIGH LATERAL LEADS POSSIBLE ANTERIOR MYOCARDIAL INFARCTION , PROBABLY OLD BORDERLINE T WAVE ABNORMALITY- ANT/INF LEADS BASELINE ARTIFACT- I, III, AVR, AVL, AVF, V2, V5-V6 ABNORMAL ECG No previous ECG available for comparison Electronically Signed On 02-11-2025 16:06:53 CDT by Aiden [facility] CTA Brain : Radiologist's impression: FINDINGS: Head: No acute intracranial hemorrhage, acute infarction or abnormal extra axial fluid collection. Ventricles are normal and symmetric. No mass/mass effect. No abnormally enhancing lesions on the post contrast imaging. The orbits, paranasal sinuses and mastoid air cells are normal. Intracranial arteries Left vertebral artery is dominant. There is no hemodynamically significant stenosis in the vertebral, basilar and internal carotid arteries. Both A1 and P1 segments are patent. There are no aneurysms identified. Cerebral arterial arborization appears symmetric. Carotid arteries: The aortic arch and the great vessels arising from the arch are normal in caliber with no dissection or hemodynamically significant stenosis. There is no evident atherosclerotic plaque with 0% stenosis of the right and left carotid bulbs relative to normal distal artery lumen diameter (NASCET criteria). Left vertebral artery is mildly dominant. Cervical soft tissues are unremarkable. Visualized upper lungs are clear. Instrumented C5-C7 anterior spinal fusion with anterior plate and screw fixation. IMPRESSION: 1. No evident atherosclerotic plaque with 0% stenosis of the right and left carotid bulbs relative to normal distal artery lumen diameter (NASCET criteria). 2. Normal brain. No acute intracranial process or abnormally enhancing brain lesions. 3. Unremarkable cerebral CT angiogram with no hematoma significant stenosis, thrombosis or aneurysm. Assessment and Plan Assessment and plan (1) Brain TIA: Code(s): G45.9 - Transient cerebral ischemic attack, unspecified Status: Acute Assessment and Plan: -continue telemetry -check bedside swallow screen eval and treat -consult Neurology -ASA given in the ED -loading dose Plavix 300 mg p.o. given in the ED -check echo with bubble study -check carotid duplex in the a.m. -last lipid panel on 01/29/2025, abnormal, patient reports she is unable to tolerate statins (2) Essential (primary) hypertension: Code(s): I10 - Essential (primary) hypertension Status: Acute Assessment and Plan: continue home medications Irbesartan 300mg p.o. daily (3) Mixed hyperlipidemia: Onset Date: 10/05/19 Code(s): E78.2 - Mixed hyperlipidemia Status: Acute Assessment and Plan: -triglycerides 458, cholesterol 317, non HDL 280, HDL direct 37, cholesterol ratio 8.6 -pt unable to tolerate statins due to GERD -discussed with patient to request Repatha for future management of her hyperlipidemia (4) GERD (gastroesophageal reflux disease): Qualifiers: Esophagitis presence: without esophagitis Qualified Code(s): K21.9 - Gastro-esophageal reflux disease without esophagitis Code(s): K21.9 - Gastro-esophageal reflux disease without esophagitis Status: Acute Assessment and Plan: chronic -pantoprazole 40 mg p.o. b.i.d. Plan Continue home medications: As reconciled-hold GLP 1, metformin, VTE Prophylaxis: SCDs DIET: Heart healthy Anticipated hospital stay: > 1 day Code Status: Full code Hospitalist MIPS Advance Care Plan I have confirmed that the patient's Advanced Care Plan is present, code status is documented, or surrogate decision maker is listed in patient medical record.: Yes Medication Reconciliation I have utilized all available resources to obtain, update and review the patients current medications (includes all prescriptions, OTC, herbals, cannabis, and nutritional supplements).: Yes
[2025-02-12] VITALS (7 sets, daily range): BP systolic 109–126; BP diastolic 59–73; PULSE 65–94; RESP 16; TEMP 36.5–36.6; O2SAT 97–98
--- NOTE | 2025-02-12 | ECHO_ITS ---
Patient Info Name: Kayla De Anda Age: 54 years : 1970 Gender: Female Ht: 62 in Wt: 184 lbs BSA: 1.95 m2 HR: 65 bpm BP: 109 / 59 mmHg Heart Rhythm: Sinus Rhythm Technical Quality: Fair Exam Date: 02/12/2025 12:39 PM Patient Status: I Admit Date: 02/11/2025 Exam Type: CA echo dop bubble study w con Complete two-dimentional, color flow and Doppler transthoracic echocardiogram is performed with agitated saline and with contrast to opacify the left ventricle and to improve the delineation of the left ventricle endocardial borders. Staff Referring Physician: Abby Herrera Warp Hauler: Kenia Rogers Attending Provider: Eliecer Monroy Contrast/Agitated Saline Contrast/Ag. Saline: Definity Amount: 2.00 ml Administered By: Kenia Rogers Existing IV Access: Yes IV Access Condition: patent with no signs of infiltration Contrast/Ag. Saline: Agitated Saline Amount: 20.00 ml Existing IV Access: Yes IV Access Condition: patent with no signs of infiltration Summary 1. Definity contrast administered improved wall motion interpretation. 2. Left ventricular chamber dimension is normal. 3. Left ventricular systolic function is normal, estimated at 60-65. 4. The left ventricular diastolic function is grade I diastolic dysfunction. 5. E/e' 6 is not elevated. 6. There is trace tricuspid valve regurgitation. 7. No pulmonary hypertension, estimated pulmonary arterial systolic pressure is 26 mmHg. Left Ventricle E/e' 6 is not elevated. Left ventricular chamber dimension is normal. Left ventricular systolic function is normal, estimated at 60-65. The left ventricular diastolic function is grade I diastolic dysfunction. Definity contrast administered improved wall motion interpretation. Right Ventricle Right ventricular chamber dimension is normal. Right ventricular systolic function is normal and with normal TAPSE 1.8 cm. Left Atria Left atrial chamber dimension is normal. Right Atria Right atrial chamber dimension is normal. Atrial Septum Intact interatrial septum visualized by 2D and agitated saline imaging. Agitated saline injection with and without valsalva maneuver opacified right side cardiac chambers without shunt to left side cardiac chambers. Aortic Valve The aortic valve is trileaflet. There is no aortic valve stenosis. There is no aortic valve regurgitation. Pulmonic Valve There is no pulmonic regurgitation. Mitral Valve There is no mitral valve stenosis. There is no mitral valve regurgitation. Tricuspid Valve There is trace tricuspid valve regurgitation. No pulmonary hypertension, estimated pulmonary arterial systolic pressure is 26 mmHg. Pericardium/Pleural There is no pericardial effusion. Inferior Vena Cava Normal inferior vena cava with >50% collapse upon inspiration consistent with normal right atrial pressure, 5 mmHg. Aorta The aortic root size at the sinus of Valsalva is normal. Left Ventricular Outflow Tract Name Value Normal LVOT 2D LVOT Diameter 2.0 cm LVOT Doppler LVOT Peak Velocity 141 cm/s LVOT Peak Gradient 8 mmHg LVOT Mean Gradient 4 mmHg LVOT VTI 26 cm LVOT VTI/AV VTI Ratio 1.0 LVOT Stroke Volume 78 ml LVOT CO 6.0 l/min LVOT CI 3.1 l/min/m2 Pulmonic Valve Name Value Normal RVOT Doppler RVOT Peak Velocity 83 cm/s RVOT Peak Gradient 3 mmHg PV Doppler PV Peak Velocity 99 cm/s PV Peak Gradient 4 mmHg Mitral Valve Name Value Normal MV Diastolic Function MV E Peak Velocity 61 cm/s MV A Peak Velocity 68 cm/s MV E/A 0.9 MV Decel Time (PW) 295 ms MV Annular TDI MV E/e' (Septal) 7.3 MV E/e' (Lateral) 6.6 MV E/e' (Average) 7.0 Tricuspid Valve Name Value Normal TV Regurgitation Doppler TR Peak Velocity 227 cm/s TR Peak Gradient 21 mmHg Estimated PAP/RSVP RA Pressure 5 mmHg <=5 PA Systolic Pressure 26 mmHg <36 RV Systolic Pressure 26 mmHg <36 TV Annular TDI TV Lateral Aure s' Velocity 12.6 cm/s >=9.5 Aorta Name Value Normal Ascending Aorta Ao Root Diameter (MM) 2.7 cm Ao Root Diam Index (MM) 1.4 cm/m2 Aortic Valve Name Value Normal AV Doppler AV Peak Velocity 164 cm/s AV Peak Gradient 11 mmHg AV Mean Gradient 4 mmHg AV VTI 27 cm AV Area (Cont Eq VTI) 2.9 cm2 >=3.0 AV Area (Cont Eq Henrry) 2.6 cm2 AV DI (Henrry) 0.86 AV Regurgitation 2D LVOT Area 3.1 cm2 Ventricles Name Value Normal LV Dimensions 2D/MM IVS Diastolic Thickness (2D) 0.6 cm 0.6-1.0 LVID Diastole (2D) 4.3 cm 3.8-5.2 LVIW Diastolic Thickness (2D) 0.6 cm 0.6-0.9 LVID Systole (2D) 2.6 cm 2.2-3.5 LVOT Diameter 2.0 cm LV Mass (2D Cubed) 80.03 g 67.00-162.00 LV Mass Index (2D Cubed) 41 g/m2 43-95 Relative Wall Thickness (2D) 0.30 <=0.42 LV Fractional Shortening/Ejection Fraction 2D/MM LV Fractional Shortening (2D) 40 % 27-45 LV EF (2D Teichholz) 70 % LV Diastolic Volume (4C MOD) 61 ml LV EF (4C MOD) 70 % LV Diastolic Volume (2C MOD) 30 ml LV EF (2C MOD) 69 % LV Diastolic Volume (BP MOD) 43 ml 46-106 LV Diastolic Volume Index (BP MOD) 22 ml/m2 29-61 LV Systolic Volume (BP MOD) 14 ml 14-42 LV Systolic Volume Index (BP MOD) 7 ml/m2 8-24 LV EF (BP MOD) 69 % 54-74 LV Diastolic Length (4C) 6.8 cm LV Systolic Length (4C) 5.9 cm LV Stroke Volume (4C MOD) 43 ml Atria Name Value Normal LA Dimensions LA Dimension (MM) 3.4 cm 2.7-3.8 LA Volume (4C A-L) 44 ml LA Volume (BP A-L) 42 ml RA Dimensions RA Area (4C) 10.6 cm2 <=18.0 Report Signatures
[2025-02-12 04:41] LABS: Hematocrit 37.0 % (37.0-47.0); Hemoglobin 11.9 g/dL (12.0-15.0); Immature Granulocyte Percent A 0.4 % (0-0.5); Lymphocytes Absolute Auto 4.14 K/mm3 (0.9-3.2); Mean Corpuscular HGB Conc 32.2 g/dl (32-36); Mean Corpuscular Hemoglobin 31.4 pg (26-34); Mean Corpuscular Volume 97.6 fl (80-100); Nucleated Red Blood Cells Absolute Auto 0.000 K/mm3 (0.0-0.012); Nucleated Red Blood Cells Perc 0.0 % (0.0-0.2); Platelet Count Result 288 k/mm3 (150-375); Red Blood Count 3.79 M/mm3 (4.2-5.4); White Blood Count 7.9 K/mm3 (4.5-10.0)
[2025-02-12 04:51] LABS: Hemoglobin A1C 5.3 % (<5.7)
[2025-02-12 04:58] LABS: Alanine Aminotransferase 26 U/L (6-35); Albumin Level 3.6 g/dL (3.5-5.1); Alkaline Phosphatase 81 U/L (38-126); Anion Gap 6 mmol/L (4-12); Aspartate Amino Transferase 32 U/L (14-36); Bilirubin,Total 0.5 mg/dL (0.2-1.3); Blood Urea Nitrogen 15 mg/dL (7-17); Calcium 9.1 mg/dL (8.4-10.2); Carbon Dioxide 32 mmol/L (22-30); Chloride 101 mmol/L (98-107); Estimated CRCL calculation 78 ml/min; Estimated Glomerular Filt Rate > 60; Glucose 94 mg/dL (65-110); Potassium 3.8 mmol/L (3.4-5.0); Sodium 139 mmol/L (137-145); Total Protein 6.6 g/dL (6.3-8.2)
[2025-02-12 05:05] LABS: Anisocytosis 1+; Hypochromasia 1+; Schistocytes None Seen
[2025-02-12 06:09] LABS: Vitamin B12 482.0 pg/mL (239-931)
[2025-02-12 07:29] LABS: Magnesium 1.8 mg/dL (1.6-2.3)
[2025-02-12] MEDS: PANTOPRAZOLE 40 MG TABLET PO (08:55)
[2025-02-12] MEDS: IRBESARTAN 150 MG TABLET 300 MG PO (08:55)
[2025-02-12] MEDS: ASPIRIN 81 MG CHEWABLE TABLET PO (08:55)
--- NOTE | 2025-02-12 09:27 | PCSTNOTE ---
Please refer to the Bedside Swallow Evaluation in the EMR. Please note, silent aspiration cannot be ruled out at bedside. The patient is a 54 year old female admitted for possible TIA with onset right facial numbness and right side weakness. Orders received from physician to complete a BSE and r/o aspiration risk. Oral Mechanism exam: The patient states the facial numbness appears to have resolved. Demonstrates good lingual and labial ROM. Speech is intelligible. The patient was positioned upright and assess with her morning meal to include the following consistencies: Thin liquid via straw, Puree/applesauce, cracker/solids. Oral Stage: timely oral preparation and transit all consistencies. Pharyngeal stage: Timely swallow all consistencies with good laryngeal elevation and no viewed CSA such as coughing, choking, or changes in vocal quality. Recommend 1. Regular Diet / Level 7 and 2. Thin liquid / Level 0
--- NOTE | 2025-02-12 10:07 | P.PNIM_ITS ---
Subjective Date/time seen: 02/12/25 10:07 Review of Systems Review of Systems: All systems reviewed & are unremarkable except as noted in HPI and below Objective Data Vital Signs Vital Signs: Vital Signs - 24 hr 02/11/25 12:54 02/11/25 12:56 02/11/25 13:00 Temperature 97.9 F Pulse Rate 87 88 85 Respiratory Rate 16 17 26 H Blood Pressure 124/75 124/75 124/75 Pulse Oximetry 100 100 100 Oxygen Delivery Room Air 02/11/25 13:05 02/11/25 13:31 02/11/25 14:15 Temperature Pulse Rate 88 79 81 Respiratory Rate 12 17 Blood Pressure 118/62 105/67 Pulse Oximetry 100 99 Oxygen Delivery 02/11/25 15:40 02/11/25 16:40 02/11/25 16:57 Temperature 97.7 F Pulse Rate 85 78 Respiratory Rate 12 18 Blood Pressure 104/72 109/66 Pulse Oximetry 99 99 Oxygen Delivery Room Air 02/11/25 17:00 02/11/25 19:41 02/11/25 20:00 Temperature 97.5 F L Pulse Rate 87 74 79 Respiratory Rate 18 17 Blood Pressure 117/71 Pulse Oximetry 99 98 Oxygen Delivery Room Air 02/11/25 20:00 02/11/25 23:37 02/12/25 00:00 Temperature 98.6 F Pulse Rate 74 79 70 Respiratory Rate 17 Blood Pressure 118/68 Pulse Oximetry 98 Oxygen Delivery 02/12/25 03:37 02/12/25 04:00 02/12/25 07:39 Temperature 97.8 F 97.7 F Pulse Rate 72 65 74 Respiratory Rate 16 16 Blood Pressure 109/59 L 122/67 Pulse Oximetry 97 98 Oxygen Delivery 02/12/25 09:00 Temperature Pulse Rate Respiratory Rate Blood Pressure 125/73 Pulse Oximetry Oxygen Delivery Intake/Output Intake/Output: Intake & Output 02/09/25 02/10/25 02/11/25 02/12/25 23:59 23:59 23:59 23:59 Intake Total 240 270 Balance 240 270 Meds/Results Medications: Active Medications Generic Name Dose Route Start Last Admin Trade Name Freq PRN Reason Stop Dose Admin Aspirin 81 mg 02/12/25 08:00 02/12/25 08:55 Aspirin 81 Mg Chewable Tablet PO 81 mg DAILY@0800 AAMIR Administration Irbesartan 300 mg 02/12/25 09:00 02/12/25 08:55 Irbesartan 150 Mg Tablet PO 300 mg DAILY AAMIR Administration Pantoprazole Sodium 40 mg 02/11/25 21:00 02/12/25 08:55 Pantoprazole 40 Mg Tablet PO 40 mg Q12HR AAMIR Administration Perflutren Lipid Microsphere 0 ml 02/11/25 17:26 Perflutren Lipid Microspheres 1.5 Ml Vial Diluted To 10 Ml Total Volume IV PUSH 02/14/25 17:26 ONCE PRN adequate visualization Protocol Valacyclovir HCl 1,000 mg 02/12/25 09:00 02/12/25 08:55 Valacyclovir Hcl 500 Mg Tablet PO 1,000 mg DAILY AAMIR Administration Radiology Results: ITS Impressions Head/Neck CTA 02/11/25 13:56 IMPRESSION: 1. No evident atherosclerotic plaque with 0% stenosis of the right and left carotid bulbs relative to normal distal artery lumen diameter (NASCET criteria). 2. Normal brain. No acute intracranial process or abnormally enhancing brain lesions. 3. Unremarkable cerebral CT angiogram with no hematoma significant stenosis, th rombosis or aneurysm. Chest X-Ray 02/11/25 14:05 IMPRESSION: 1. Mild discoid atelectasis/scarring at the left costophrenic angle. No other acute cardiopulmonary disease. Labs Labs: Laboratory Results - last 24 hr 02/11/25 02/11/25 02/11/25 13:09 13:12 13:23 WBC 9.0 RBC 4.28 Hgb 13.3 Hct 40.3 MCV 94.2 MCH 31.1 MCHC 33.0 RDW 12.9 Plt Count 323 MPV 9.5 Immature Gran % (Auto) 0.2 Neut % (Auto) 44.4 L Lymph % (Auto) 43.3 Sherman % (Auto) 5.9 Eos % (Auto) 5.2 H Baso % (Auto) 1.0 Lymph # (Auto) 3.89 H Sherman # (Auto) 0.5 Eos # (Auto) 0.5 H Baso # (Auto) 0.1 Abs Immat Gran (auto) 0.02 Absolute Neuts (auto) 4.0 Absolute Nucleated RBC 0.000 Band Neutrophils % Nucleated RBC % 0.0 Platelet Estimate Hypochromasia Anisocytosis Schistocytes PT 12.4 INR 0.9 APTT 26.4 Sodium 139 Potassium 3.3 L Chloride 100 Carbon Dioxide 28 Anion Gap 11 BUN 15 Creatinine 0.76 1.00 Estim Creat Clear Calc 74 57 Estimated GFR > 60 58 L Glucose 104 POC Capillary Glucose 96 Hemoglobin A1c Calcium 9.5 Magnesium Total Bilirubin 0.6 AST 35 ALT 33 Alkaline Phosphatase 96 Troponin I < 0.012 Total Protein 6.9 Albumin 4.0 Vitamin B12 Folate 02/11/25 02/12/25 19:37 03:46 WBC 7.9 RBC 3.79 L Hgb 11.9 L Hct 37.0 MCV 97.6 MCH 31.4 MCHC 32.2 RDW 12.9 Plt Count 288 MPV 9.9 Immature Gran % (Auto) 0.4 Neut % (Auto) 34.3 L Lymph % (Auto) 52.4 H Sherman % (Auto) 5.7 Eos % (Auto) 6.1 H Baso % (Auto) 1.1 Lymph # (Auto) 4.14 H Sherman # (Auto) 0.5 Eos # (Auto) 0.5 H Baso # (Auto) 0.1 Abs Immat Gran (auto) 0.03 Absolute Neuts (auto) 2.7 Absolute Nucleated RBC 0.000 Band Neutrophils % Not Reportable Nucleated RBC % 0.0 Platelet Estimate Adequate Hypochromasia 1+ Anisocytosis 1+ Schistocytes None seen PT INR APTT Sodium 139 Potassium 3.8 Chloride 101 Carbon Dioxide 32 H Anion Gap 6 BUN 15 Creatinine 0.71 Estim Creat Clear Calc 78 Estimated GFR > 60 Glucose 94 POC Capillary Glucose 102 Hemoglobin A1c 5.3 Calcium 9.1 Magnesium 1.8 Total Bilirubin 0.5 AST 32 ALT 26 Alkaline Phosphatase 81 Troponin I Total Protein 6.6 Albumin 3.6 Vitamin B12 482.0 Folate > 20.0 H
[2025-02-12] MEDS: PERFLUTREN LIPID MICROSPHERES 1.5 ML VIAL DILUTED TO 10 ML TOTAL VOLUME IV PUSH (12:50)
--- NOTE | 2025-02-12 14:55 | IVDEFINITY ---
Prior to administration of IV Definity the patient was educated on the risks and benefits of the imaging enhancing agent including potential adverse side effects. The patient verbalized understanding. Allergies were verified. No exclusion criteria were identified and at least one of the following inclusion criteria were met: 1) physician request, 2) patient technically difficult to image (per the [place] [employer] guidelines of two or more segments not discernable within the apical view), or 3) questionable left ventricular function. ?
--- NOTE | 2025-02-12 15:25 | P.DS_ITS ---
DS: Admitting Diagnosis Discharge Date 02/12/2025 Admitting Diagnosis Stroke symptoms DS: Discharge Diagnosis Discharge Diagnosis (1) Brain TIA: Code(s): G45.9 - Transient cerebral ischemic attack, unspecified Status: Acute (2) Essential (primary) hypertension: Code(s): I10 - Essential (primary) hypertension Status: Acute (3) Mixed hyperlipidemia: Onset Date: 10/05/19 Code(s): E78.2 - Mixed hyperlipidemia Status: Acute (4) GERD (gastroesophageal reflux disease): Qualifiers: Esophagitis presence: without esophagitis Qualified Code(s): K21.9 - Gastro-esophageal reflux disease without esophagitis Code(s): K21.9 - Gastro-esophageal reflux disease without esophagitis Status: Acute DS: Summary Hospital Course Hospital Course: Patient is a 54-year-old female with PMHx: HTN, GERD, iron deficiency, presented to the emergency room with complaints of numbness and tingling in the right side of her face and wrist that began earlier yesterday morning while looking at her phone. ED workup revealed: NIH Scale level 1, K+ 3.3, GFR 58, creatinine 1.0, CTA normal brain, chest x-ray mild discoid atelectasis/scarring at the left costophrenic angle. No other acute cardiopulmonary disease, EKG sinus rhythm. Echocardiogram showed: Summary 1. Definity contrast administered improved wall motion interpretation. 2. Left ventricular chamber dimension is normal. 3. Left ventricular systolic function is normal, estimated at 60-65. 4. The left ventricular diastolic function is grade I diastolic dysfunction. 5. E/e' 6 is not elevated. 6. There is trace tricuspid valve regurgitation. 7. No pulmonary hypertension, estimated pulmonary arterial systolic pressure is [address] Menezes saw patient. Patient to go home on Aspirin 81 mg PO daily, Plavix 75 mg PO daily, and something for her cholesterol. Discussed with patient she cannot take Statin, would like to try Fenofibrate and will discuss further with Dr. Jalen Chao or to continue the Fenofibrate. Follow up with Dr. Menezes in a couple of weeks. Patient to have MRI done as an outpatient. Status at Discharge Functional status at discharge: independent ambulation Overall status at discharge: patient is progressing back to baseline Time Spent with Patient Time attestation: Total time spent providing and/or coordinating discharge services: Time spent: Greater than 30 minutes Exam Const: General: comfortable and no acute distress Eyes: Sclera: sclerae normal Resp: Effort & Inspection: normal respiratory effort Auscultation: clear to auscultation bilaterally Cardio: Rate: regular rate Rhythm: regular rhythm Other: Telemetry- SR 82. GI: GI Palp: Yes Soft to palpation Auscultation: normal bowel sounds Skin: General skin exam: no rashes or lesions noted Neuro: Motor exam (neuro): 5/5 motor strength present throughout Extrem: General: pedal edema Psych: Mental Status: mental status grossly normal Affect: normal affect DS: Data Data Completed and Pending Labs on day of discharge: Labs from last 24 hours 02/12/25 02/11/25 03:46 19:37 WBC 7.9 RBC 3.79 L Hgb 11.9 L Hct 37.0 MCV 97.6 MCH 31.4 MCHC 32.2 RDW 12.9 Plt Count 288 MPV 9.9 Immature Gran % (Auto) 0.4 Neut % (Auto) 34.3 L Lymph % (Auto) 52.4 H Ocean % (Auto) 5.7 Eos % (Auto) 6.1 H Baso % (Auto) 1.1 Lymph # (Auto) 4.14 H [place] # (Auto) 0.5 Eos # (Auto) 0.5 H Baso # (Auto) 0.1 Abs Immat Gran (auto) 0.03 Absolute Neuts (auto) 2.7 Absolute Nucleated RBC 0.000 Band Neutrophils % Not Reportable Nucleated RBC % 0.0 Platelet Estimate Adequate Hypochromasia 1+ Anisocytosis 1+ Schistocytes None seen Sodium 139 Potassium 3.8 Chloride 101 Carbon Dioxide 32 H Anion Gap 6 BUN 15 Creatinine 0.71 Estim Creat Clear Calc 78 Estimated GFR > 60 Glucose 94 POC Capillary Glucose 102 Hemoglobin A1c 5.3 Calcium 9.1 Magnesium 1.8 Total Bilirubin 0.5 AST 32 ALT 26 Alkaline Phosphatase 81 Total Protein 6.6 Albumin 3.6 Vitamin B12 482.0 Folate > 20.0 H Discharge Plan Discharge Attending physician on discharge: Ruel Harding Consulting providers: Chano Menezes Discharging Clinician: Danisha Llanes Anticipated Discharge Date/Time: 02/12/25 16:04 Patient Disposition: Home Activity: may shower and as tolerated Diet: heart healthy Discharge Instructions: * Make sure you are drinking water if you are taking the Hydrochlorothiazide. * Discuss with primary restarting Metoprolol, hold until you discuss. * If you develop weakness, numbness, facial droop, or horrible headache call 911. * Follow up with Dr. Menezes outpatient in a couple of weeks. * Started Fenofibrate 160 mg PO daily. Discuss with Dr. Rao or if he would like you to start Repatha. * Schedule MRI brain outpatient. * Decrease fats and fried foods in your diet. Increase activity. Thank you for entrusting [facility] with your healthcare! Patient Instructions: Antibiotic Form, Fenofibrate (By mouth), Clopidogrel (By mouth), Transient Ischemic Attack (DC), Heart Healthy Diet (DC), GERD (Gastroesophageal Reflux Disease) (DC), Blood Thinners (GEN) Patient Language: Indonesian Stand Alone Forms: General Discharge Information Follow-up/Referrals: Dwight Rao MD [Primary Care Provider, Family Practice] - 1 Week Chano Menezes MD [Physician, Neurology] - 2 Weeks Discharge Medications: New aspirin [Children's Aspirin] 81 mg Tablet,Chewable 81 mg PO DAILY@0800 Qty: 90 0RF clopidogrel 75 mg tablet 75 mg PO DAILY Qty: 90 0RF fenofibrate 160 mg tablet 160 mg PO DAILY Qty: 90 0RF Continued hydrochlorothiazide 12.5 mg tablet 12.5 mg PO . q.a.m. Qty: 30 11RF lansoprazole [Prevacid] 30 mg capsule,delayed release(DR/EC) 30 mg PO DAILY Qty: 90 3RF Ozempic 0.25 mg or 0.5 mg (2 mg/3 mL) pen injector 0.25 mg subcut WEEKLY Patient Comments: sample started 0.25 mg weekly for weight loss, September, Rx Instructions: 0.25 mg weekly ferrous sulfate 137 mg (45 mg iron) tablet extended release 137 mg PO . q.a.m. metformin 500 mg tablet extended release 24 hr 500 mg PO BID Qty: 60 11RF irbesartan [Avapro] 300 mg tablet 300 mg PO DAILY Qty: 90 3RF valacyclovir [Valtrex] 1 gram tablet 1,000 mg PO DAILY Qty: 90 3RF amoxicillin 250 mg capsule 750 mg PO Q12H Rx Instructions: 3 capsules twice daily for 7 days for pharyngitis. Held metoprolol succinate 100 mg tablet extended release 24 hr 100 mg PO DAILY Qty: 90 3RF Hold Instructions: Resume on 02/21/25. Discuss with primary, before restarting. Blood pressure running 105/67-126/70, no history of arrhythmias. Date of admission: 02/11/25 15:07 Primary Care Provider: Dwight Rao Admitting Provider: Eliecer Monroy Attending physician on admission: Eliecer Monroy Condition: Improved Hospitalist MIPS Heart Failure (Exclusion) Patient has history of Heart Transplant or Left Ventricular Assistive Device?: No IF YES, STOP HERE Heart Failure (Qualifier) Patient has current or prior documentation of LVEF less than or equal to 40%, or mod/servere depressed LVSF?: No IF NO, STOP HERE
--- NOTE | 2025-02-12 16:34 | WPDNEURCNPN ---
Assessment and Plan Assessment and plan (1) Brain TIA: Code(s): G45.9 - Transient cerebral ischemic attack, unspecified Status: Acute (2) Elevated hemoglobin A1c: Onset Date: 03/25/24 Code(s): R73.09 - Other abnormal glucose Status: Acute (3) Essential (primary) hypertension: Code(s): I10 - Essential (primary) hypertension Status: Acute (4) Coronary artery calcification seen on CAT scan: Onset Date: 09/21/24 Code(s): I25.10 - Atherosclerotic heart disease of [place] coronary artery without angina pectoris Status: Acute (5) Mixed hyperlipidemia: Onset Date: 10/05/19 Code(s): E78.2 - Mixed hyperlipidemia Status: Acute Plan the differential diagnosis of transient ischemic attack affecting her right face and right upper limb versus symptoms could be from the cervical spine were brought up by the patient during the discussion and she wondered if this could cause the symptoms. It can happen however be important to investigate from the cerebrovascular disease point of view. CT scan of brain and CT angiogram of the head and neck did not show any abnormality. She has had echocardiogram today and MRI of the brain is pending till tomorrow. She is anxious to go home. She is already on aspirin and Plavix. She is unable to take statin and hence her brother who is also her physician will try to arrange for Repatha and I would recommend that. Last LDL was 78 the goal should be to keep it under 65 per close to 50. Risk factor management such as she diabetes mellitus and hypertension are also being closely monitored and seem to be stable. I shall be glad to see her for follow-up in my office results of other investigations. She brought up the fact that she also has occasional numbness in hands and feet and this could be originating from cervical spine or possible mild peripheral neuropathy. These may be addressed as an outpatient. I have advised that she should take aspirin and Plavix for 3 months and unless we find anything significant MRI of the brain she can drop off 1 of the 2. She also noted to have calcification on the CT scan of the heart and this of course will require some follow-up. Consult date: 02/12/25 HPI: Kayla De Anda is a 54 year old female who presented to the hospital with complaints of numbness in the right side of the face and right arm. She was having difficulty using her right hand and fingers. Symptoms started suddenly 1st she thought it may get better but after some time she got concerned. By the time she came to emergency room it was 4 hours into it. She did have a CT scan of the brain and CT angiogram of the head and neck which did not show any significant abnormalities. There is no previous history of similar problem. It was noted that she has been started on aspirin and Plavix however she is unable to tolerate statins and hence considerations are being given to offer her Repatha as an outpatient. Her last LDL on 12/29/2024 was 78. She is waiting for the MRI and had a echocardiogram just before I came in. At this time she has no symptoms and she is able to function as normally as she always did. Her was present at the time of the evaluation. She denies any headache or diplopia or difficulty speech or swallowing. During the times that she had numbness in the face and arm she did not have any difficulty with speech. She also pointed out that she had a surgery on cervical spine in the past at C5-6 7. She also has numbness in her both hands to some extent also her both feet and has wondered the cause for that. She does not drink any alcohol and does not smoke. Her father has had a myocardial infarction. The patient is otherwise good health and is employed. Also there is no history of recent febrile illness or trauma. It was noted that she has history of borderline diabetes mellitus and also hypertension for which she is on treatment. Her brother is a physician and has been taking care of her. Review of Systems Review of Systems: All systems reviewed & are unremarkable except as noted in HPI and below [facility] Past Medical History Medical History Pharyngitis Sebaceous cyst of breast Cellulitis BMI 34.0-34.9,adult Eosinophilia (12/26/24) new onset elevated eosinophils With count elevated at 1428 on 12/26/2024.IgE normal at 6. repeat CBC on 01/29/2025 with WBC 9.1, hemoglobin 13.4, eosinophil count slightly elevated at 537. Coronary artery calcification seen on CAT scan (09/21/24) coronary artery calcium CT scan 09/21/2024 with total score of 457 with 68.1 of the LAD, 7.6 circumflex, 381 RCA. High probability significant coronary artery disease. BMI 37.0-37.9, adult Acute thoracic back pain (~08/2024) Vitamin D deficiency, unspecified (05/04/24) level low at 26.2 with goal greater than 30 on 05/04/2024. BMI 38.0-38.9,adult Elevated liver enzymes (03/25/24) AST 38, ALT elevated at 53 with alkaline phosphatase elevated at 131 on 03/25/2024.AST 34, ALT 48 on 05/04/2024. AST 32, ALT 38 on 08/28/2024. AST 23, ALT 25 on 12/26/2024. Elevated hemoglobin A1c (03/25/24) fasting glucose 99 with hemoglobin A1c 6.0 on 03/25/2024. Fasting glucose 97 with hemoglobin A1c 5.8 on 05/04/2024. Fasting glucose 86 with hemoglobin A1c 5.9 on 08/28/2024. Fasting glucose 86 with hemoglobin A1c 5.7 and GFR 101 on 12/26/2024. Renal stones (~08/04/23) nonobstructing renal stones noted on CT of the abdomen and pelvis on 08/04/2023 Uterine fibroid (~08/04/23) uterine fibroids noted on CT of the abdomen and pelvis on 08/04/2023. Cholelithiasis (~08/04/23) gallstones noted on CT of the abdomen 08/04/2023. Lumbar spondylosis (~08/04/23) CT of the abdomen and pelvis on 08/04/2023 reveals diffuse degenerative disc disease of the lumbar spine with facet arthropathy severe at L3-L4 through L5-S1 with moderate osteoarthritis of the hips. Perimenopausal Early satiety Abdominal bloating Abdominal pain in female amylase 30, lipase 19, CA 125 normal at 17, AST 20, ALT 16 on 07/16/2023. Morbid obesity with BMI of 40.0-44.9, adult Breast cancer screening by mammogram Normal mammogram 08/04/2023. normal mammogram 01/31/2025. Lightheadedness (~11/2022) Low iron on 12/03/2022. Abdominal obesity and metabolic syndrome Chronic neck pain Hypersomnia Obesity (BMI 30-39.9) Normal glucose at 81 with hemoglobin A1c 5.4 with normal TSH at 1.28 on 07/16/2023. Blood typing encounter 01/12/2022 with blood type O positive Adult BMI 35.0-35.9 kg/sq m Weight gain Contraception management GERD (gastroesophageal reflux disease) Vitamin B12 deficiency anemia (10/05/19) Vitamin B12 low at 268 with goal greater than 400 on 10/05/2019 with [id number] . Level normal at 1617 on 01/12/2022. Level greater than 2000 with hemoglobin 12.6 on 12/03/2022. level normal at 782 with hemoglobin 13.4 on 07/16/2023. Level normal at 584 on 08/28/2024. Normal at 412 with hemoglobin 13.3 on 12/26/2024. Iron deficiency (10/05/19) iron low at 36 with 80% saturation and hemoglobin 13.2 on 10/05/2019. iron normal at 54 with% saturation low at 14% with ferritin low at 13 and hemoglobin 12.9 on 01/12/2022. Iron low at 34 with 9% saturation and ferritin 8 with hemoglobin 12.6 on 12/03/2022. Iron low at 43 with 11% saturation and ferritin low at 11 with hemoglobin 13.4 on 07/16/2023. Iron 42 with 11% saturation and ferritin 17 on 10/07/2023. Iron 54 with 15% saturation and ferritin 61 with hemoglobin 15.5 on 08/28/2024. Iron 57 with 19% saturation and ferritin 86 with hemoglobin 13.3 on 12/26/2024. Family history of colon cancer in father (06/10/22) For screening colonoscopy was normal on 06/10/2022 with recheck in 5 years. Encounter for wellness examination in adult Mixed hyperlipidemia (10/05/19) Total cholesterol 264, HDL 56, triglycerides 222, LDL 170 on 10/05/2019. Total cholesterol 236 with triglycerides elevated at 437 with HDL 45 and LDL not calculated on 01/12/2022. Total cholesterol 215 with triglycerides 477, HDL 38 and LDL not calculated with ratio of 5.8 on 12/03/2022. Cholesterol 227, triglycerides 469, HDL 36, LDL not calculated, ratio 6.3 on 10/07/2023. cholesterol 279, triglycerides 411, HDL 33, LDL 155 with ratio 8.5 on 03/25/2024. Total cholesterol 174, triglycerides 322, HDL 39, LDL 82 with ratio of 4.5 on 05/04/2024. cholesterol 216, triglycerides 332, HDL 43, LDL 126 with ratio of 5.0 on 08/28/2024. Cholesterol 153, triglycerides 278, HDL 38, LDL 78 with ratio 4.0 on 12/26/2024. cholesterol 317, triglycerides 458, HDL 37, LDL not calculated, ratio of 8.6 without medication on 01/29/2025. Fever blister Essential (primary) hypertension BUN 15, creatinine 0.84 with GFR 84 on 12/03/2022. Family History Family History Father Carcinoma of colon Hypertension Mother Hypertension Other Diabetes mellitus Family history of heart disease in male family member before age 55 Social History Social History Smoking status: Never smoker Alcohol intake: never Substance use: never Substance use type: does not use Lack of Transportation: No Lack of Food: Never True Current Housing: Decline to Answer Concerned About Future Housing: Decline to Answer Difficulty Paying Gas/Electric Bills: Decline to Answer Difficulty Paying for Meds: Decline to Answer Currently Unemployed: Decline to Answer Education: Decline to Answer Difficulty w/ Childcare or Family Care: Decline to Answer Living arrangements: with family Spiritual care concerns: No Meds Home Medications and Allergies Home Medications ?Medication ?Instructions ?Recorded ?Confirmed ?Type ferrous sulfate 137 mg (45 mg 137 mg PO . q.a.m. 07/26/23 02/11/25 History iron) tablet,extended release metformin 500 mg tablet,extended 500 mg PO BID #60 tabs 04/07/24 02/11/25 Rx release 24 hr hydrochlorothiazide 12.5 mg tablet 12.5 mg PO . q.a.m. #30 tabs 05/08/24 02/11/25 Rx lansoprazole 30 mg capsule,delayed 30 mg PO DAILY #90 caps 05/08/24 02/11/25 Rx release (Prevacid) metoprolol succinate 100 mg 100 mg PO DAILY #90 tabs 05/08/24 02/11/25 Rx tablet,extended release 24 hr Held on 02/12/25. Instructions: Resume on 02/21/25. Discuss with primary, before restarting. Blood pressure running 105/67-126/70, no history of arrhythmias. irbesartan 300 mg tablet (Avapro) 300 mg PO DAILY #90 tabs 05/23/24 02/11/25 Rx valacyclovir 1 gram tablet 1,000 mg PO DAILY #90 tabs 11/27/24 02/11/25 Rx (Valtrex) semaglutide 0.25 mg or 0.5 mg (2 0.25 mg subcut WEEKLY 01/02/25 02/11/25 History mg/3 mL) subcutaneous pen injector (Ozempic) amoxicillin 250 mg capsule 750 mg PO Q12H 02/08/25 02/11/25 History aspirin 81 mg chewable tablet 81 mg PO DAILY@0800 #90 tabs 02/12/25 Rx (Children's Aspirin) clopidogrel 75 mg tablet 75 mg PO DAILY #90 tabs 02/12/25 Rx fenofibrate 160 mg tablet 160 mg PO DAILY #90 tabs 02/12/25 Rx Allergies Allergy/AdvReac Type Severity Reaction Status Date / Time No Known Allergies Allergy Verified 02/11/25 13:04 Vital Signs Vital Signs - 24 hr 02/11/25 16:40 02/11/25 16:57 02/11/25 17:00 Temperature 97.7 F Pulse Rate 78 87 Respiratory Rate 18 Blood Pressure 109/66 Pulse Oximetry 99 Oxygen Delivery Room Air 02/11/25 19:41 02/11/25 20:00 02/11/25 20:00 Temperature 97.5 F L Pulse Rate 74 79 74 Respiratory Rate 18 17 Blood Pressure 117/71 Pulse Oximetry 99 98 Oxygen Delivery Room Air 02/11/25 23:37 02/12/25 00:00 02/12/25 03:37 Temperature 98.6 F 97.8 F Pulse Rate 79 70 72 Respiratory Rate 17 16 Blood Pressure 118/68 109/59 L Pulse Oximetry 98 97 Oxygen Delivery 02/12/25 04:00 02/12/25 07:39 02/12/25 08:00 Temperature 97.7 F Pulse Rate 65 74 79 Respiratory Rate 16 Blood Pressure 122/67 Pulse Oximetry 98 Oxygen Delivery 02/12/25 09:00 02/12/25 12:00 02/12/25 12:00 Temperature 97.7 F Pulse Rate 94 76 Respiratory Rate 16 Blood Pressure 125/73 126/70 Pulse Oximetry 98 Oxygen Delivery Exam Const: General: cooperative, well developed and alert Orientation/consciousness: oriented to person, oriented to place and oriented to time HENMT: Head: atraumatic Mouth: Yes oropharynx normal Eyes: Alignment and Position: position normal Pupils: Equal, round and reactive pupils present EOM: EOMs intact bilaterally Neck: Neck: supple Resp: Effort & Inspection: normal respiratory effort Cardio: Rhythm: regular rhythm Skin: General skin exam: normal color Neuro: Cranial nerves: Yes CN's II-XII intact bilaterally, Yes facial sensation intact/muscles of mastication intact, Yes Equal, round and reactive pupils present, Yes Bilaterally intact EOM present, Yes Nystagmus not present, Yes facial symmetry, Yes Midline tongue present and Yes Symmetric palate elevation present Cognition (Neuro): normal cognition Speech: normal speech Gait exam (Neuro): Normal gait present Motor exam (neuro): 5/5 motor strength present throughout, Normal motor muscle tone present throughout, Motor abnormalities not present and Tremors during motor activity present Sensory Exam: normal sensation Coordination: [id number] test normal and Normal rapid alternating movements of the distal upper extremity present (Neuro) Other: Scar noted slightly to the right of the midline in the neck where she has had a cervical spine surgery through an anterolateral approach. Extrem: General: normal to inspection Psych: Mental Status: mental status grossly normal Affect: normal affect Results Labs 02/12/25 03:46 02/12/25 03:46 Labs: Short CBC 02/12/25 Range/Units 03:46 WBC 7.9 (4.5-10.0) K/mm3 Hgb 11.9 L (12.0-15.0) g/dL Hct 37.0 (37.0-47.0) % Plt Count 288 (150-375) k/mm3 BMP 02/12/25 03:46 Sodium 139 Potassium 3.8 Chloride 101 Carbon Dioxide 32 H BUN 15 Creatinine 0.71 Glucose 94 Calcium 9.1 Liver Function 02/12/25 Range/Units 03:46 Total Bilirubin 0.5 (0.2-1.3) mg/dL AST 32 (14-36) U/L ALT 26 (6-35) U/L Alkaline Phosphatase 81 (38-126) U/L Albumin 3.6 (3.5-5.1) g/dL Imaging Attestation: I personally reviewed and interpreted this imaging study as follows: ( CT scan of brain and CT angiogram of the head and neck) My impression: no significant stenosis or large vessel occlusion or intracranial stenosis identified. CT scan of brain also did not show any significant abnormalities. No acute process was noted. Radiologist's impression: Same
== END 2025-02-12 16:25 | disposition home or self-care (01) ==
LOC: ANHED 15:07 → ANH2MED 16:19
PROVIDERS: Nurse Practitioner; Admitting Provider General Practice; Emergency Provider Emergency Medicine; PCP Family Medicine; Visit Provider Internal Medicine
DX: G45.9 Transient cerebral ischemic attack, unspecified (principal); R29.701 NIHSS score 1; E78.2 Mixed hyperlipidemia; I25.10 Atherosclerotic heart disease of native coronary artery without angina pectoris; D72.10 Eosinophilia, unspecified; I50.31 Acute diastolic (congestive) heart failure; J02.9 Acute pharyngitis, unspecified; J98.11 Atelectasis; E66.9 Obesity, unspecified; I11.0 Hypertensive heart disease with heart failure; Z68.33 Body mass index [BMI] 33.0-33.9, adult; E88.810 Metabolic syndrome; Z79.85 Long-term (current) use of injectable non-insulin antidiabetic drugs; Z79.84 Long term (current) use of oral hypoglycemic drugs; B00.1 Herpesviral vesicular dermatitis; K21.9 Gastro-esophageal reflux disease without esophagitis; K80.20 Calculus of gallbladder without cholecystitis without obstruction; M54.2 Cervicalgia; G89.29 Other chronic pain; M47.896 Other spondylosis, lumbar region; M16.0 Bilateral primary osteoarthritis of hip; N95.9 Unspecified menopausal and perimenopausal disorder; D25.9 Leiomyoma of uterus, unspecified; Z80.0 Family history of malignant neoplasm of digestive organs; Z82.49 Family history of ischemic heart disease and other diseases of the circulatory system; Z83.3 Family history of diabetes mellitus; Z87.442 Personal history of urinary calculi
CPT/HCPCS: 36415; 70496; 70498; 71045; 80053; 82607; 82746; 82948; 83036; 83735; 84484; 85025; 85610; 85730; 92610; 93005; 96374; 96375; 99285; A9270; C8929; G0378; Q9957; Q9967